=== PATIENT | male | born 1980 | race Caucasian/White ===

== ENCOUNTER 2017-04-12 23:51 | Emergency (ER) | payer OTHER ==
[~2017-04-12] VITALS: Ht 177.8 cm; Wt 88.9 kg
[2017-04-13] VITALS: BP 141/92
--- NOTE | 2017-04-13 01:00 | NUR ---
pt to er bb ra, pt found sleeping on bench +etoh. no immediate signs of distress noted. pt vital signs stable. breaths equal and unlabored. pt arousable to painful stimuli. no signs of trauma noted. pt to er bed, changed into gown and connected to monitor. will cont to monitor pt.
[2017-04-13] MEDS ORDERED: ONDANSETRON HCL/PF 4 MG/2 ML VIAL IVP ONE (02:00)
[2017-04-13 02:11] LABS: HEMATOCRIT 47 % (39-51); HEMOGLOBIN 15.8 g/dL (13.5-17.5); MEAN CORPUSCULAR HEMOGLOBIN 32 PG (26.0-33.0); MEAN CORPUSCULAR HGB CONC 34 g/dl (31.0-36.0); MEAN CORPUSCULAR VOLUME 93 fL (80-96); PLATELET COUNT (AUTO) 193 /CMM (150-450); RDW COEFFICIENT OF VARIATION 14.7 (11.5-15.0); RED BLOOD CELL COUNT(AUTO) 5.02 MIL/uL (4.5-6.0); WHITE BLOOD COUNT (AUTO) 7.4 K/uL (4.3-11.0)
[2017-04-13 02:19] LABS: CREATININE 0.8 mg/dL (0.6-1.3); POTASSIUM 4.3 mmol/L (3.5-5.1)
[2017-04-13 02:28] LABS: ALBUMIN 3.6 g/dL (3.4-5.0); BILIRUBIN,DIRECT 0.1 mg/dL (0.0-0.2); BILIRUBIN,TOTAL 0.2 mg/dL (0.2-1.0)
[2017-04-13 02:31] LABS: THYROID STIMULATING HORMONE 0.632 uIU/mL (0.358-3.74)
[2017-04-13 02:58] LABS: EOSINOPHILS % (MANUAL) 2 % (0-4); LYMPHOCYTES % (MANUAL) 13 % (16-48); MONOCYTES % (MANUAL) 2 % (0-11.0); NEUTROPHILS % (MANUAL) 83 (42-76)
--- NOTE | 2017-04-13 03:09 | NUR ---
IV removed. Catheter intact and site benign. Pressure and 4x4 applied to site. No bleeding noted. PT LEFT WITHOUT DISCHARGE PAPERWORK. PT WANTED TO GO OUTSIDE TO SMOKE. PT REFUSED LAST VITAL SIGNS. PT AMBULATED OUT WITH A STEADY GAIT.
== END 2017-04-13 04:00 | disposition home or self-care (01) ==
LOC: ER 23:55
DX: F10.229 Alcohol dependence with intoxication, unspecified (principal); Z88.1 Allergy status to other antibiotic agents; Z88.0 Allergy status to penicillin
CPT/HCPCS: 36415; 70450; 80048; 80076; 80329; 84443; 85025; 93005; 99285; A4606; G0480 ×2; Z7610

== ENCOUNTER 2019-07-02 12:18 | Emergency (ER) | payer OTHER ==
[~2019-07-02] VITALS: Ht 188 cm; Wt 86.6 kg
--- NOTE | 2019-07-02 12:18 | NUR ---
[facility], NEIGHBOR CALLED NOTICED PT INTOXICATED UNABLE TO OBTAIN HX. TO ER BED 14, HOOKED TO MONITOR, CHANGED TO HOSP GOWN, WARM BLANKET PROVIDED, AWAITING MD PALUMBO. PATIENT SHOUTS "I HAVE THE VIRUS" REPEATEDLY AND LAUGHS LOUD AFTERWARDS.
--- NOTE | 2019-07-02 12:20 | NUR ---
SPARERIBS TRIMMER DEGRASSE AT BEDSIDE
--- NOTE | 2019-07-02 12:30 | NUR ---
Note [email or web address] in EDM - 07/02/19 at 1546 by KARISHMA [facility], NEIGHBOR CALLED NOTICED PT INTOXICATED UNABLE TO OBTAIN HX. TO ER BED 14, HOOKED TO MONITOR, CHANGED TO HOSP GOWN, WARM BLANKET PROVIDED, AWAITING MD PALUMBO. PATIENT SHOUTS "I HAVE THE VIRUS" REPEATEDLY AND LAUGHS LOUD AFTERWARDS.
--- NOTE | 2019-07-02 13:01 | NUR ---
URINE COLLECTED AND SENT TO LAB
--- NOTE | 2019-07-02 13:01 | NUR ---
BLOOD DRAWN BY CHIP BIN OPERATOR.
--- NOTE | 2019-07-02 13:02 | NUR ---
RSV SWAB DONE.
[2019-07-02 13:11] LABS: APPEARANCE,URINE Clear (CLEAR); BILIRUBIN,URINE Negative (NEGATIVE); BLOOD, URINE Moderate Ery/uL (NEGATIVE); COLOR,URINE Yellow (YELLOW); KETONES,URINE Negative (NEGATIVE); LEUKOCYTE ESTERASE ,URINE Trace (NEGATIVE); NITRITE, URINE Positive (NEGATIVE); PROTEIN,URINE 30 mg/dl (NEGATIVE); UGLUCOSE Negative (NEGATIVE); UROBILINOGEN,URINE 0.2 EU/dL (0.2)
[2019-07-02 13:15] LABS: BACTERIA,URINE Few /HPF (None Seen); SQUAMOUS EPITHELIAL CELL,UR Rare /HPF (None Seen)
[2019-07-02 13:22] LABS: BASOPHILS # (AUTO) 0.1 /CMM (0.0-0.2); BASOPHILS % (AUTO) 0.8 % (0.0-2.0); EOSINOPHILS % (AUTO) 0.1 % (0.0-6.0); HEMATOCRIT 51 % (39-51); HEMOGLOBIN 17.3 g/dL (13.5-17.5); LYMPHOCYTES # (AUTO) 2.1 /CMM (0.8-4.8); LYMPHOCYTES % (AUTO) 14.5 % (20.0-44.0); MEAN CORPUSCULAR HGB CONC 34 g/dl (31.0-36.0); MEAN CORPUSCULAR VOLUME 95 fL (80-96); MONOCYTES # (AUTO) 1.1 /CMM (0.1-1.30); MONOCYTES % (AUTO) 7.5 % (2.0-12.0); NEUTROPHILS % (AUTO) 77.1 % (43.0-81.0); PLATELET COUNT (AUTO) 486 /CMM (150-450); RED BLOOD CELL COUNT(AUTO) 5.39 MIL/uL (4.5-6.0); WHITE BLOOD COUNT (AUTO) 14.3 K/uL (4.3-11.0)
[2019-07-02 13:30] LABS: CALCIUM, SERUM 8.7 mg/dL (8.5-10.1); CREATININE 0.9 mg/dL (0.6-1.3); POTASSIUM 3.9 mmol/L (3.5-5.1)
[2019-07-02 13:37] LABS: BILIRUBIN,DIRECT 0.1 mg/dL (0.0-0.2); BILIRUBIN,TOTAL 0.5 mg/dL (0.2-1.0); TOTAL PROTEIN, SERUM 7.1 g/dL (6.4-8.2)
[2019-07-02 13:38] LABS: SALICYLATE 2.1 mg/dL (2.8-20.0)
[2019-07-02] MEDS ORDERED: OLANZAPINE 10 MG VIAL IM ONE ×2 (14:14→14:30)
--- NOTE | 2019-07-02 19:42 | NUR ---
pt mother at bedside to take patient home. pt ok to be discharged. per wilber. roll forming machine operator. Patient discharged to home in stable condition. Written and verbal after care instructions given. Patient verbalizes understanding of instruction.Patient is awake and alert to self, day, and place. pt ambulatory with a steady gait
[2019-07-02 19:45] VITALS: BP 128/77
== END 2019-07-02 19:45 | disposition home or self-care (01) ==
LOC: ER 12:27
DX: F10.129 Alcohol abuse with intoxication, unspecified (principal); E11.9 Type 2 diabetes mellitus without complications; Y90.8 Blood alcohol level of 240 mg/100 ml or more; Z88.0 Allergy status to penicillin; Z88.1 Allergy status to other antibiotic agents
CPT/HCPCS: 36415; 80048; 80076; 80305; 80307; 80329; 81001; 85025; 87491; 87591; 87633; 96372; 99285; G0480; J3490; 81000-TC